=== PATIENT | female | born 1995 ===

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

== ENCOUNTER 2017-04-04 11:29 | Emergency (ER) | payer MEDICAID ==
[2017-04-04 11:30] VITALS: BMI 25.6
[2017-04-04 11:43] VITALS: BP 107/67; PULSE 75; RESP 18; TEMP 98.6; O2SAT 98
--- NOTE | 2017-04-04 13:31 | ED PDOC ---
HPI: General Adult Time Seen by Provider: 04/04/17 13:24 Chief Complaint (Nursing): Flu-like Symptoms Chief Complaint (Provider): flu like symptoms History Per: Patient Additional Complaint(s): 21-year-old female presents to emergency department with cough, chest congestion , fever and sore throat for 2 days. Patient also complains of overall body aches. She has not taken any [id number] meds for symptomatic relief. Past Medical History Reviewed: Historical Data, Nursing Documentation, Vital Signs Vital Signs: Last Vital Signs Temp 98.6 F 04/04/17 11:41 Pulse 75 04/04/17 11:41 Resp 18 04/04/17 11:41 BP 107/67 04/04/17 11:41 Pulse Ox 98 04/04/17 15:06 - Medical History PMH: No Chronic Diseases - Surgical History Surgical History: No Surg Hx - Family History Family History: States: No Known Family Hx - Living Arrangements Living Arrangements: With Family - Social History Current smoker - smoking cessation education provided: No Alcohol: None Drugs: Denies - Home Medications Home Medications: Ambulatory Orders Medication Instructions Recorded Ciprofloxacin [Cipro] 500 mg PO BID #14 tab 11/15/16 Dicyclomine [Bentyl] 20 mg PO Q8 PRN #15 tab 11/15/16 Ondansetron ODT [Zofran ODT] 4 mg PO TID PRN 11/15/16 metroNIDAZOLE [Flagyl] 500 mg PO BID 11/15/16 metroNIDAZOLE [Flagyl] 500 mg PO BID #14 tab 11/15/16 metroNIDAZOLE [Flagyl] 500 mg PO TID 10 Days tab 11/18/16 Albuterol HFA [Ventolin HFA 90 1 puff IH ASDIR #1 unit 04/04/17 mcg/actuation (8 g)] Benzonatate 200 mg PO TID PRN #20 capsule 04/04/17 Oseltamivir Phosphate [Tamiflu] 75 mg PO BID #10 capsule 04/04/17 - Allergies Allergies/Adverse Reactions: Allergies Allergy/AdvReac Type Severity Reaction Status Date / Time No Known Allergies Allergy Verified 09/04/16 10:50 Review of Systems ROS Statement: Except As Marked, All Systems Reviewed And Found Negative Constitutional: Positive for: Fever, Chills, Other (body aches) ENT: Positive for: Nose Congestion, Throat Pain Respiratory: Positive for: Cough, Pleuritic Pain Gastrointestinal: Negative for: Vomiting Physical Exam - Reviewed Nursing Documentation Reviewed: Yes Vital Signs Reviewed: Yes - Physical Exam Appears: Positive for: Well, Non-toxic, No Acute Distress Skin: Negative for: Rash Eye Exam: Positive for: Normal appearance ENT: Positive for: Nasal Congestion, Pharyngeal Erythema Cardiovascular/Chest: Positive for: Regular Rate, Rhythm Respiratory: Positive for: Decreased Breath Sounds. Negative for: Wheezing, Respiratory Distress Gastrointestinal/Abdominal: Positive for: Soft. Negative for: Tenderness Extremity: Positive for: Normal ROM Neurologic/Psych: Positive for: Alert, Oriented - Laboratory Results Urine POC: Negative - ECG O2 Sat by Pulse Oximetry: 98 Pulse Ox Interpretation: Normal - Other Rad CXR X-Ray: Interpreted by Me, Viewed By Me X-Ray Interpretation: no acute finding Nebulizer Treatments/Peak Flow - Duonebs Number of Bronchodilator Doses given?: 1 (duoneb) - Pre/Post Peak Flow Pre Treatment Peak Flow: 300 Post treatment Peak Flow: 400 - Steroid Treatment Steroid: Not Clinically Indicated - Clinical Response Clinical Response: Improved Medical Decision Making Medical Decision Makin-year-old female with flu like symptoms. Plan: CXR Flu swab Rapid strep and throat culture PO tylenol and motrin Duoneb x 1 Flu A is positive. Prescriptions provided for Tamiflu, Ventolin inhaler and Tessalon Perles. Advised fluids, rest, NSAIDs for fever and follow-up with primary doctor in 1-2 days. Disposition - Clinical Impression Clinical Impression: Influenza - Patient ED Disposition Is Patient to be Admitted: No Counseled Patient/Family Regarding: Studies Performed, Diagnosis, Need For Followup, Rx Given - Disposition Referrals: [facility] [Outside] Disposition: Routine/Home Disposition Time: 15:41 Condition: STABLE Additional Instructions: Take Tylenol every 4 hours and Motrin every 6 hours to control fever and body aches. Take prescription meds as directed. Rest and drink plenty fluids. Follow- up with primary doctor or clinic in 2-3 days. Prescriptions: Albuterol HFA [Ventolin HFA 90 mcg/actuation (8 g)] 1 puff IH ASDIR #1 unit Benzonatate 200 mg PO TID PRN #20 capsule PRN Reason: Cough Oseltamivir Phosphate [Tamiflu] 75 mg PO BID #10 capsule Instructions: Influenza (ED) Forms: [facility] [facility] ([place]), [facility] School/Work Excuse
[2017-04-04] MEDS ORDERED: Albuterol-Ipratrop 3 mg / 0.5 (3 ml) UD ONE (13:42)
[2017-04-04] MEDS ORDERED: Albuterol-Ipratrop 3 mg / 0.5 (3 ml) UD INH STA (13:53)
--- NOTE | 2017-04-04 14:52 | RAD ---
HISTORY: cough COMPARISON: Chest radiograph dated 08/19/2015. TECHNIQUE: Chest PA and lateral FINDINGS: LUNGS: No active pulmonary disease. PLEURA: No significant pleural effusion identified. No pneumothorax apparent. CARDIOVASCULAR: Normal. OSSEOUS STRUCTURES: No significant abnormalities. VISUALIZED UPPER ABDOMEN: Normal. OTHER FINDINGS: None. IMPRESSION: No active disease.
== END 2017-04-04 15:54 | disposition home or self-care (01) ==
LOC: H.ER 11:29
DX: J11.1 Influenza due to unidentified influenza virus with other respiratory manifestations (principal)

== ENCOUNTER 2018-03-23 11:07 | Emergency (ER) | payer MEDICAID ==
[2018-03-23 11:07] VITALS: BMI 25.6
[2018-03-23] MEDS ORDERED: Albuterol-Ipratrop 3 mg / 0.5 (3 ml) UD INH STA (12:52)
--- NOTE | 2018-03-23 12:54 | ED PDOC ---
HPI: General Adult Time Seen by Provider: 03/23/18 12:52 Chief Complaint (Nursing): Chest Pain Chief Complaint (Provider): CP History Per: Patient (22 YO FEMALE HERE WITH COUGHING/FEVER X 2 DAYS ASSOCIATED WITH CHEST PAIN TODAY. NOTES CHEST PAIN WITH COUGHING. DENIES ANY VOMITING/DIARRHEA. NO H/O ASTHMA.) Past Medical History Reviewed: Historical Data, Nursing Documentation, Vital Signs Vital Signs: Last Vital Signs Temp Pulse Resp BP Pulse Ox 98 03/23/18 11:37 - Medical History PMH: Asthma Denies: Chronic Kidney Disease - Family History Family History: States: Unknown Family Hx - Home Medications Home Medications: Ambulatory Orders Medication Instructions Recorded Ciprofloxacin [Cipro] 500 mg PO BID #14 tab 11/15/16 Dicyclomine [Bentyl] 20 mg PO Q8 PRN #15 tab 11/15/16 Ondansetron ODT [Zofran ODT] 4 mg PO TID PRN 11/15/16 metroNIDAZOLE [Flagyl] 500 mg PO BID 11/15/16 metroNIDAZOLE [Flagyl] 500 mg PO BID #14 tab 11/15/16 metroNIDAZOLE [Flagyl] 500 mg PO TID 10 Days tab 11/18/16 Albuterol HFA [Ventolin HFA 90 1 puff IH ASDIR #1 unit 04/04/17 mcg/actuation (8 g)] Benzonatate 200 mg PO TID PRN #20 capsule 04/04/17 Oseltamivir Phosphate [Tamiflu] 75 mg PO BID #10 capsule 04/04/17 Acetaminophen [Acetaminophen Extra 2 tab PO Q6 PRN #24 tablet 03/23/18 Strength] Albuterol HFA [Ventolin HFA 90 2 puff IH [id number] PRN #1 inh 03/23/18 mcg/actuation (8 g)] Ibuprofen [Motrin] 600 mg PO Q8 PRN #21 tab 03/23/18 Oseltamivir Phosphate [Tamiflu] 75 mg PO BID #9 capsule 03/23/18 Pseudoephedrine [Sudafed Tab] 60 mg PO Q6 PRN #10 tab 03/23/18 - Allergies Allergies/Adverse Reactions: Allergies Allergy/AdvReac Type Severity Reaction Status Date / Time No Known Allergies Allergy Verified 03/23/18 11:35 Review of Systems ROS Statement: Except As Marked, All Systems Reviewed And Found Negative Cardiovascular: Positive for: Chest Pain Respiratory: Positive for: Cough Physical Exam - Reviewed Nursing Documentation Reviewed: Yes Vital Signs Reviewed: Yes - Physical Exam Appears: Positive for: Well, Non-toxic, No Acute Distress Head Exam: Positive for: ATRAUMATIC, NORMAL INSPECTION, NORMOCEPHALIC Skin: Positive for: Normal Color, Warm, DRY Eye Exam: Positive for: EOMI, Normal appearance, PERRL ENT: Positive for: Normal ENT Inspection Neck: Positive for: Normal, Painless ROM Cardiovascular/Chest: Positive for: Regular Rate, Rhythm. Negative for: Chest Non Tender (CHEST WALL MIDSTERNAL TENDERNESS) Respiratory: Positive for: Normal Breath Sounds, Other (DIMINISHED BREATH SOUNDS RIGHT SIDE LUNG.) Gastrointestinal/Abdominal: Positive for: Normal Exam, Soft Back: Positive for: Normal Inspection Extremity: Positive for: Normal ROM Neurologic/Psych: Positive for: Alert, Oriented - Laboratory Results Urine POC: Negative - ECG O2 Sat by Pulse Oximetry: 98 - Progress ED Course And Treament: DUONEB X 1 DOSE TORADOL 30 MG IM X 1 DOSE TAMILFU 75 MG X 1 DOSE Disposition - Clinical Impression Clinical Impression: Chest wall pain, Influenza - Patient ED Disposition Is Patient to be Admitted: No - Disposition Referrals: [facility] [Outside] Disposition: Routine/Home Disposition Time: 13:43 Condition: FAIR Prescriptions: Albuterol HFA [Ventolin HFA 90 mcg/actuation (8 g)] 2 puff IH [id number] PRN #1 inh PRN Reason: Cough Acetaminophen [Acetaminophen Extra Strength] 2 tab PO Q6 PRN #24 tablet PRN Reason: Fever >100.4 F Ibuprofen [Motrin] 600 mg PO Q8 PRN #21 tab PRN Reason: Pain, Moderate (4-7) Oseltamivir Phosphate [Tamiflu] 75 mg PO BID #9 capsule Pseudoephedrine [Sudafed Tab] 60 mg PO Q6 PRN #10 tab PRN Reason: Nasal Congestion Instructions: Flu, Chest Pain Forms: [facility] ED School/Work Excuse
[2018-03-23] MEDS ORDERED: Albuterol-Ipratrop 3 mg / 0.5 (3 ml) UD ONE (12:58)
--- NOTE | 2018-03-23 13:34 | RAD ---
Date of service: 03/23/2018 HISTORY: COUGH COMPARISON: 04/04/2017 TECHNIQUE: Chest PA and lateral FINDINGS: LUNGS: No active pulmonary disease. PLEURA: No significant pleural effusion identified. No pneumothorax apparent. CARDIOVASCULAR: No aortic atherosclerotic calcification present. Normal cardiac size. No pulmonary vascular congestion. OSSEOUS STRUCTURES: No significant abnormalities. VISUALIZED UPPER ABDOMEN: Normal. OTHER FINDINGS: None. IMPRESSION: No active disease. No interval pathology noted.
[2018-03-23 13:54] VITALS: BP 131/86; RESP 20; TEMP 98.6
[2018-03-23 14:17] VITALS: PULSE 75; O2SAT 100
--- NOTE | 2018-03-24 21:09 | CARD ---
APPROVED REPORT Date of service: 03/23/2018 EKG Measurement Heart [id number] <Conclusion> Normal sinus rhythm Normal ECG
== END 2018-03-23 13:47 | disposition home or self-care (01) ==
LOC: H.ER 11:07
DX: R07.89 Other chest pain (principal); J11.1 Influenza due to unidentified influenza virus with other respiratory manifestations
CPT/HCPCS: 71046; 81025; 93005; 94640; 96372; 99283; J1885